=== PATIENT | female | born 1985 | race Caucasian/White ===

== ENCOUNTER 2016-09-22 14:54 | Inpatient (IN) ==
[2016-09-22 13:17] LABS: Bilirubin,Urine Negative (Negative); Blood,Urine Negative (Negative); Color,Urine Yellow (Yellow); Glucose,Urine (UA) Normal (Normal); Ketones,Urine Negative (Negative); Leukocyte Esterase,Urine Negative (Negative); Nitrite,Urine Negative (Negative); Protein,Urine Negative (Neg-Trace); Specific Gravity,Urine 1.016 (1.010-1.025); Urobilinogen,Urine Normal (Normal)
[2016-09-22 13:21] LABS: Clarity,Urine Clear (Clear)
--- NOTE | 2016-09-22 14:53 | OB/GYN History & Physical ---
Date of Encounter: 09/24/16 Time of Encounter: 14:50 Assessment and Plan (1) 37 weeks gestation of Current visit: Yes Status: Acute (2) Anemia affecting in third trimester Current visit: Yes Status: Acute (3) Gestational diabetes Current visit: Yes Status: Acute Qualifiers: Gestational diabetes mellitus control: diet-controlled Trimester: third trimester Qualified Code(s): O24.410 - Gestational diabetes mellitus in , diet controlled (4) PROM (premature rupture of membranes) Current visit: Yes Status: Acute Qualifiers: PROM onset of labor timing: onset of labor within 24 hours of rupture PROM gestational age: full term Qualified Code(s): O42.02 - Full-term premature rupture of membranes, onset of labor within 24 hours of rupture History of Present Illness HPI: Ms. Rodriguez is a 30 year old female with an EDC of 10/09/16 at 37 weeks and 4 days who presents to labor and delivery with history of several gushes of fluid since approximately 6:30 this morning. She denies any contractions. Her course is significant for gestational diabetes however she has not been checking her sugars lately as instructed by Dr. Puckett since her Accu- Cheks have all been within normal limits. She is O+, rubella immune, group B strep negative. Past Med Surg Social Fam HX - Past Medical History Medical history: non-contributory Psychiatric history: no psych history - Past Surgical History Surgical History: no surgical history - Social History Smoking Status: Former smoker Smokeless Tobacco Status: No Alcohol use: none Drug use: none - Family History Mother Living Status: Still Living Hx Family Cardiac Disorders: No Hx Family Respiratory Disorders: Yes (COPD, Asthma) Hx Family Cancer: Yes (breast) Hx Family GI Disorders: No Hx Family Genitourinary Disorders: No Hx Family Endocrine Disorder: Yes (Thyroid issues) Hx Family Musculoskeletal Disorders: No Hx Family Neuromuscular Disorders: No Hx Family Neurologic Disorders: No Hx Family HEENT Disorders: No Hx Family Autoimmune Disorders: No Hx Family Reproductive Disorders: No Hx Family Psychosocial Disorders: No Hx Family Medical Disorders: Yes (Diabetes) Obstetrical History - Pregnancies : 3 Medications and Allergies Vits #90/Iron Fum/FA [ Formula Tablet] 1 each PO DAILY [History] Folic Acid 1 mg PO DAILY 09/22/16 [History] Allergies No Known Allergies Allergy (Verified 09/22/16 13:08) Exam - Vital Signs Vital signs: Initial Vital Signs Temp Pulse Resp BP 97.8 F 88 16 124/70 09/22/16 13:09 09/22/16 13:09 09/22/16 13:09 09/22/16 13:09 - Constitutional Constitutional: well developed, well nourished, no acute distress - Abdomen Abdomen: Present: gravid, non tender - Extremities Extremities exam: normal inspection - Cervix Dilation: 3 Effacement: 90 Station: 0 - Comments Comments: Sterile speculum exam was performed showing a positive vaginal pool, nitrazine was negative, fern test is positive. Results Result Diagrams: 09/23/16 03:47 All other labs normal. - VTE Reasons for not Prescribing Prophylaxis: Treatment not Indicated - Low risk for VTE
[2016-09-22] MEDS ORDERED: Naloxone 0.4 MG/ML INJ IVP PRN (15:07)
[2016-09-22] MEDS ORDERED: Famotidine 20 MG/2 ML VIAL IVP PRN (15:07)
[2016-09-22] MEDS ORDERED: Ringers Solution, Lactated 1,000 ML IVC SCH (15:15)
[2016-09-22] MEDS ORDERED: Oxytocin 20 units/ LR 1000 mL 20 UNIT/1,000 ML BAG IVC SCH (15:15)
[2016-09-22 15:23] LABS: Basophils % 0.3 %; Eosinophils # 0.2 K/mcL (0.0-0.6); Eosinophils % 1.3 %; Hematocrit 38.2 % (35.3-44.9); Hemoglobin 12.8 g/dL (11.5-15.4); Immature Granulocytes % 0.5 % (0-4); Lymphocytes # 3.2 K/mcL (0.6-4.6); Lymphocytes % 21.5 %; Mean Corpuscular HGB Conc 33.5 g/dL (31.6-35.5); Mean Corpuscular Hemoglobin 29.4 pg (28.0-33.3); Mean Corpuscular Volume 87.8 fL (83.0-100.0); Mean Platelet Volume 12.1 fL (9.4-12.4); Monocytes % 6.3 %; Neutrophils # 10.6 K/mcL (1.6-8.9); Platelet Count 240 K/mcL (140-400); Red Blood Count 4.35 M/mcL (3.82-4.97); Red Cell Distribution Width 13.3 % (11.5-14.5); Segmented Neutrophils % 70.1 %
[2016-09-22] MEDS ORDERED: *HR* Nalbuphine 20 MG/ML AMPUL IVP PRN (17:00)
[2016-09-22] MEDS ORDERED: EPHEDrine 50 MG/ML VIAL IVP PRN (18:05)
[2016-09-22] MEDS ORDERED: Ringers Solution, Lactated 500 ML IVC ONE (18:05)
[2016-09-22] MEDS ORDERED: *HR* Ropivacaine/PF 0.2% 10 ML AMPUL EP ONE (18:05)
[2016-09-22] MEDS ORDERED: *HR* FentaNYL (PF) 100 MCG/2 ML VIAL EP ONE (18:05)
[2016-09-22] MEDS ORDERED: Epidural Premix (fent/bupiv) 110 ML EP SCH (18:15)
[2016-09-22] MEDS ORDERED: *HR* FentaNYL (PF) 100 MCG/2 ML VIAL ONE (18:18)
[2016-09-22] MEDS ORDERED: *HR* Ropivacaine/PF 0.2% 10 ML AMPUL ONE ×2 (18:18→19:27)
--- NOTE | 2016-09-22 18:18 | Anesthesia Evaluation PreOp ---
Date of Encounter: 09/22/16 Time of Encounter: 18:10 - Past History Planned Operation: Labor Epidural Cardiac History: Denies any Significant Hx Pulmonary History: Former smoker PRE PRESS MANAGER History: Denies Any Significant HX Other Medical History: Denies Any Significant HX Anesthesia History: No Prior Anesthetic Complications, Past Anesthesia : Yes Alcohol Use: none Drug use: none, other (Past IV drug abuse) Medications and Allergies Vits #90/Iron Fum/FA [ Formula Tablet] 1 each PO DAILY [History] Folic Acid 1 mg PO DAILY 09/22/16 [History] Allergies No Known Allergies Allergy (Verified 09/22/16 13:08) - Meds/Allergy Pre-op Review Medications Reviewed: Yes Allergies Reviewed: Yes Beta Blockers on Current Med List: No Anesthesia Results - Labs 09/22/16 14:57 Anesthesia Exam Last Vital Signs Temp 97.8 F 09/22/16 13:09 Pulse 88 09/22/16 13:09 Resp 16 09/22/16 13:09 BP 124/70 09/22/16 13:09 Height: 1.55m Weight: 68.8kg NPO (# of Hours): >4hr Pain Scale: 7 Pain Scale Used: Numeric (1 - 10) - HEENT Pupil (Motor): Pupils equal Mallampati: II Teeth: Normal Oral Opening: Greater than 3 - PRE PRESS MANAGER LOC: Oriented PRE PRESS MANAGER Motor: Normal RUE, Normal LUE, Normal RLE, Normal LLE, Normal Face PRE PRESS MANAGER Sensory: Normal: RUE, LUE, RLE, LLE, Face - Cardiac Rhythm: Regular Murmur: None - Pulmonary Breath Sounds: bilateral Clear Respiratory Effort: Symmetrical Anesthesia Assess/Plan ASA Score: 2 Modified [place] Scale for Level of Consciousness: Cooperative, oriented, and tranquil Anesthetic Plan: Regional Monitoring Plan: Standard Monitors Recovery Plan: Other
[2016-09-22] MEDS ORDERED: Epidural Premix (fent/bupiv) 110 ML EP ONE (18:19)
--- NOTE | 2016-09-22 18:46 | Anesthesia Procedures ---
Date of Encounter: 09/22/16 Time of Encounter: 08:10 Procedures: Anesthesia - Epidural/Spinal Patient ID/Chart reviewed: Yes Patient examined: Yes OB Eval: Gestational age: 37.4 OB Eval: : 3 OB Eval: Hx Para: 1 OB Eval: Contractions: Non-stressed pattern Consent Obtained: Yes Supplemental Oxygen: None/Room Air Site Prep: Aseptic Technique, Sterile prep and drape, 0.5% Chlorhexidine/Alcohol Patient position: upright Local Anesthetic: Lidocaine 1% Amount of Local Anesthetic used: 2 Touhy Needle Gauge: 18 Touhy Needle Depth (cm): 6 Catheter Depth at Skin (cm): 12 Test Dose (1.5% Lido + Epi): Volume given (mls): 5 Test Dose Result: Negative Loading Dose: Fentanyl (mcg): 100 Loading Dose: Other: Ropivacaine 0.2% 10mL Loading Dose Administered: Thru Catheter Infusion Med: 0.125% Bupivacaine w/ 2 mcg/ml Fentanyl Infusion Rate (mls/hr): 12 (Bolus 4mL q15min; Max 3/hr) Catheter Secured in Place: Tegaderm, Tape Interspace Used: L4-L5 Loss of Resistance (ROCCO): Yes Blood: No CSF: No Paresthesia: No Procedure: Patient tolerated well. L4-5 x1 attempt. Vitals + FHT's: VSS and FHR stable throughout procedure. See nursing documentation.
--- NOTE | 2016-09-22 20:49 | OB/GYN Procedure Note ---
Delivery - Delivery Date: 09/22/16 Provider: Jeremy Zapata Intrapartum events: none Delivery induction: none Delivery augmentation: pitocin Delivery monitor: external FHT, external uterine Anesthesia: epidural Estimated Blood Loss: 200 - (s) Infant A Infant Delivery Date: 09/22/16 Infant Delivery Time: 20:30 Presentation: vertex Position: ABEL Route of delivery: Gender: Female Viability: Viable Pounds: 5 Ounces: 10 Weight Gram: 2555 kg at 1 minute: 8 at 5 mins: 9 Shoulder Dystocia: not encountered Specimens collected: cord blood Placenta: spontaneous Cord: nuchal cord, 3 umbilical vessels, nuchal reduced - Repair Episiotomy: none Laceration Description: None - Complications Delivery complications: none - Disposition Mom disposition: stable in LDR disposition: stable in LDR - Comments Comments: Patient progressed to complete dilatation and had a spontaneous vaginal delivery of a viable female . scores were 8 and 9 at one and 5 minutes respectively, and the weighed 5 lbs. 10 oz. Loose nuchal cord 1 was present and was easily reduced. The placenta delivered spontaneously and appeared to be intact. No episiotomy was performed, no lacerations were noted. All sponge needle and isthmic counts reported as correct. Estimated blood loss 200 mL's. No shoulder dystocia was encountered.
[2016-09-22] MEDS ORDERED: Famotidine 20 MG TABLET PO SCH (21:00)
[2016-09-22] MEDS ORDERED: Oxytocin 20 units/ LR 1000 mL 20 UNIT/1,000 ML BAG IVC ONE (21:28)
[2016-09-22] MEDS ORDERED: Oxytocin 20 units/ LR 1000 mL 20 UNIT/1,000 ML BAG IV SCH (21:28)
[2016-09-23] MEDS: Acetaminophen 325 MG TABLET PO PRN ×4 (03:10→20:35)
[2016-09-23 04:03] LABS: Basophils % 0.2 %; Eosinophils # 0.1 K/mcL (0.0-0.6); Eosinophils % 1.1 %; Hematocrit 32.8 % (35.3-44.9); Immature Granulocytes % 0.5 % (0-4); Lymphocytes # 2.8 K/mcL (0.6-4.6); Mean Corpuscular HGB Conc 33.5 g/dL (31.6-35.5); Mean Corpuscular Hemoglobin 29.6 pg (28.0-33.3); Mean Corpuscular Volume 88.2 fL (83.0-100.0); Mean Platelet Volume 11.9 fL (9.4-12.4); Monocytes # 0.8 K/mcL (0.0-1.3); Monocytes % 6.2 %; Platelet Count 167 K/mcL (140-400); Red Blood Count 3.72 M/mcL (3.82-4.97); Red Cell Distribution Width 13.2 % (11.5-14.5)
--- NOTE | 2016-09-23 08:45 | OB/GYN Progress Note ---
Date of Encounter: 09/23/16 Time of Encounter: 08:45 - Assessment and Plan (1) Status post vaginal delivery Current Visit: Yes Status: Acute We will discharge home in a.m. if stable and afebrile Subjective - Subjective Interval history: Patient doing well minimal pain and minimal bleeding breast feedings going well. Will discharge home in a.m. if stable and afebrile Patient reports: appetite normal, voiding normally, pain well controlled, ambulating normally [place]: doing well Objective - Latest Vital Signs Latest vital signs: Vital Signs Temp Pulse Resp BP Pulse Ox 09/23/16 08:10 98.2 F 74 16 117/77 96 09/23/16 03:00 98.7 F 74 16 114/68 97 09/23/16 01:00 98.6 F 84 16 110/71 96 09/23/16 00:00 98.1 F 80 16 123/74 98 09/22/16 23:00 97.9 F 78 16 109/71 98 09/22/16 13:09 97.8 F 88 16 124/70 Intake and Output 09/22/16 09/23/16 09/23/16 23:59 07:59 15:59 Intake Total 1000 / 1000 800 / 800 Output Total 450 / 450 1100 / 1100 Balance 550 / 550 -300 / -300 Intake: IV Fluids 1000 / 1000 Lactated Ringers 1,000 ML 1000 / 1000 @ 125 mls/hr [facility]C [facility] Rx#:[id number] Oral 300 / 300 Other 500 / 500 Output: Urine 1100 / 1100 Estimated Blood Loss 200 / 200 Catheter 250 / 250 Other: Weight 66.6 kg - Exam Lungs: bilateral: normal Chest: Normal S1, Normal S2 Extremities: Present: normal Abdomen: Present: soft Uterus: Present: normal, firm Uterus Position: At Umbilicus - Labs Labs: Laboratory Results - last 24 hr 09/22/16 09/22/16 09/23/16 12:45 14:57 03:47 WBC 15.1 H 12.8 H RBC 4.35 3.72 L Hgb 12.8 11.0 L D Hct 38.2 32.8 L MCV 87.8 88.2 MCH 29.4 29.6 MCHC 33.5 33.5 RDW 13.3 13.2 Plt Count 240 167 MPV 12.1 11.9 Immature Gran % 0.5 0.5 Seg Neutrophils % 70.1 70.0 Lymphocytes % 21.5 22.0 Monocytes % 6.3 6.2 Eosinophils % 1.3 1.1 Basophils % 0.3 0.2 Neutrophils # 10.6 H 9.0 H Lymphocytes # 3.2 2.8 Monocytes # 1.0 0.8 Eosinophils # 0.2 0.1 Basophils # 0.0 0.0 Urine Color Yellow Urine Clarity Clear Urine pH 7.0 Ur Specific [place] 1.016 Urine Protein Negative Urine Glucose (UA) Normal Urine Ketones Negative Urine Blood Negative Urine Nitrite Negative Urine Bilirubin Negative Urine Urobilinogen Normal Ur Leukocyte Esterase Negative Ur Culture Indicated? NO
[2016-09-23] MEDS: Prenatal Vit/FA 1 EACH TABLET PO SCH (09:20)
[2016-09-23] MEDS ORDERED: Famotidine 20 MG TABLET PO PRN (10:10)
[2016-09-24] MEDS: Acetaminophen 325 MG TABLET PO PRN (07:55)
[2016-09-24] MEDS: Prenatal Vit/FA 1 EACH TABLET PO SCH (07:55)
[2016-09-24 08:11] VITALS: BP 122/84
--- NOTE | 2016-09-24 08:30 | Discharge Summary ---
Date of Encounter: 09/24/16 Time of Encounter: 08:25 - Discharge Diagnosis (1) Status post vaginal delivery Priority: Primary Status: Acute Comments: Continue routine care discharge home today follow up with Dr. Reyes in 4-6 weeks (2) Breast feeding status of mother Priority: Secondary Status: Acute Comments: support prn - Discharge Medications Prescriptions: Ibuprofen 800 mg PO Q8HR PRN #60 tablet PRN Reason: Pain Home Medications: Vits #90/Iron Fum/FA [ Formula Tablet] 1 each PO DAILY [History] Ibuprofen 800 mg PO Q8HR PRN #60 tablet 09/24/16 [Rx] Vit/FA 1 each PO DAILY tablet 09/24/16 [Rx] Allergies/Adverse Reactions: Allergies No Known Allergies Allergy (Verified 09/22/16 13:08) Data Procedures and tests throughout hospitalization: Laboratory Tests 09/22/16 09/22/16 09/23/16 12:45 14:57 03:47 WBC 15.1 H 12.8 H RBC 4.35 3.72 L Hgb 12.8 11.0 L D Hct 38.2 32.8 L MCV 87.8 88.2 MCH 29.4 29.6 MCHC 33.5 33.5 RDW 13.3 13.2 Plt Count 240 167 MPV 12.1 11.9 Immature Gran % 0.5 0.5 Seg Neutrophils % 70.1 70.0 Lymphocytes % 21.5 22.0 Monocytes % 6.3 6.2 Eosinophils % 1.3 1.1 Basophils % 0.3 0.2 Neutrophils # 10.6 H 9.0 H Lymphocytes # 3.2 2.8 Monocytes # 1.0 0.8 Eosinophils # 0.2 0.1 Basophils # 0.0 0.0 Urine Color Yellow Urine Clarity Clear Urine pH 7.0 Ur Specific [place] 1.016 Urine Protein Negative Urine Glucose (UA) Normal Urine Ketones Negative Urine Blood Negative Urine Nitrite Negative Urine Bilirubin Negative Urine Urobilinogen Normal Ur Leukocyte Esterase Negative Ur Culture Indicated? NO Date of admission: 09/22/16 14:54 Consults: 09/22/16 21:28 Consult to Painter Plate [CONS] Routine Comment: Vaginal delivery, consult needed Discharging clinician: Lani Lopez Anticipated date of discharge: 09/24/16 - Patient Status Disposition: Home, Self-Care Condition: Good Functional capacity at discharge: independent ambulation - Discharge Instructions Follow Up With: Matteo Reyes MD [Partnered Physician] - - Diet and Activity Activity: increase activity as tolerated Diet: regular diet Hospital Course Delivery: Episiotomy: none Laceration: none Other procedures: none complications: none Discharge diagnosis: IUP at term delivered [place] baby: female (breast feeding) Time Attestation: Total time spent providing and/or coordinating discharge services: Time Spent: Less than 30 minutes Exam - Constitutional Vitals: Temp Pulse Resp BP Pulse Ox 98.7 F 83 16 122/84 97 09/24/16 08:09 09/24/16 08:09 09/24/16 08:09 09/24/16 08:09 09/23/16 20:35 General appearance IM: A&O X 3, pleasant, answers questions appropriately - Respiratory Respiratory exam: Present: CTAB - Cardiovascular Cardiovascular exam IM: Present: RRR, +S1, +S2 - GI/Abdominal GI/Abdominal exam IM: normal bowel sounds Additional comments: +BM - Uterine Tone: Firm Uterus Position: 2 Fingers Below Umbilicus, Midline - Extremities Exam Extremities exam IM: Present: full ROM, normal capillary refill, normal inspection - Neurological Exam Neurological exam: alert, oriented X3, reflexes normal
[2016-09-24] MEDS ORDERED: Lanolin 7 G OINT...G. TP PRN (08:45)
== END 2016-09-24 11:40 | disposition home or self-care (01) | DRG 560 ==
LOC: 1NENULAB → 1NENUOBS 22:47